=== PATIENT | female | born 1960 | race Caucasian/White ===

== ENCOUNTER 2017-04-20 18:01 | Inpatient (IN) | payer BC, OTHER ==
[~2017-04-20] VITALS: Ht 157.5 cm; Wt 67.1 kg
[~2017-04-20 18:01] MED LIST: AMOX500 PO; CITA20 PO; FURO20 PO; GABA300T24; HYDACE5 PO; HYDACE5325 PO; HYDR-86; HYOS.125 SL; LORA2 PO; NAPR250 PO; NORT25 PO; Nitrostat0.4 MG SL; OMEP20ER PO; OXYACE5T PO; PANT40 PO; PROM25 PO; RANI150 PO; RXHYDACE PO; SIMV80 PO; SUMA25 PO; SYNTHROID0.2 MG PO; TAMS.4ER PO; TRAZ100; TRAZ150T57
[2017-04-20] MEDS ORDERED: PROM25 PO (18:22)
[2017-04-20 19:00] LABS: BASOPHILS ABSOLUTE AUTO 0.06 K/mm3 (0.00-0.23); BASOPHILS PERCENT AUTO 0 % (0-2); EOSINOPHILS ABSOLUTE AUTO 0.14 K/mm3 (0.00-0.68); EOSINOPHILS PERCENT AUTO 1 % (0-6); Hematocrit 40.6 % (33.0-51.0); IMMATURE GRAN ABSOLUTE AUTO 0.06 K/mm3 (0.00-0.10); IMMATURE GRAN PERCENT AUTO 0 % (0-1); LYMPHOCYTES ABSOLUTE AUTO 3.61 K/mm3 (0.84-5.20); LYMPHOCYTES PERCENT AUTO 25 % (21-46); MONOCYTES ABSOLUTE AUTO 0.74 K/mm3 (0.16-1.47); MONOCYTES PERCENT AUTO 5 % (4-13); Mean Corpuscular HGB 31.1 pg (26.0-34.0); Mean Corpuscular HGB Conc 34.5 g/dL (31.5-36.5); Mean Corpuscular Volume 90 fL (80-100); Mean Platelet Volume 9.1 fL (9.1-12.4); NEUTROPHILS ABSOLUTE AUTO 9.84 K/mm3 (1.96-9.15); NEUTROPHILS PERCENT AUTO 68 % (41-73); Platelet Count 354 K/mm3 (150-400); RDW Coefficient Variation 17.9 % (11.7-14.2); RDW Standard Deviation 58.8 fL (35.1-46.3); White Blood Cell Count 14.45 K/mm3 (4.00-11.30)
[2017-04-20 19:18] LABS: Alanine Aminotransfer (ALT/SGP 21 U/L (12-78); Albumin, Blood 3.9 g/dL (3.4-5.0); Albumin/Globulin Ratio 0.9 (0.8-1.8); Alk Phos 87 U/L (50-136); Anion Gap 11 mmol/L (6-16); Aspartate Aminotrans (AST/SGOT 19 U/L (12-37); Bilirubin, Total 0.4 mg/dL (0.1-1.0); Blood Urea Nitrogen 8 mg/dL (8-24); Bun/Creatinine Ratio 12.9 (12.0-20.0); CO2, Blood 21 mmol/L (21-32); Calcium, Blood 8.8 mg/dL (8.5-10.1); Chloride, Blood 105 mmol/L (98-108); Creatinine, Blood 0.62 mg/dL (0.40-1.00); Globulin, Blood 4.3 g/dL (2.2-4.0); Glomerular Filtration Rate >60 (60-); Glucose, Blood 144 mg/dL (70-99); Potassium, Blood 3.7 mmol/L (3.5-5.5); Sodium, Blood 137 mmol/L (136-145); Total Protein, Blood 8.2 g/dL (6.4-8.2)
[2017-04-20] MEDS ORDERED: Zofran Odt4 MG SL (20:29)
[2017-04-20] MEDS ORDERED: Augmentin 875-1 EACH PO (20:29)
[2017-04-20] MEDS ORDERED: Percocet 5-3251 EACH PO (20:29)
[2017-04-21 06:55] LABS: BASOPHILS ABSOLUTE AUTO 0.05 K/mm3 (0.00-0.23); BASOPHILS PERCENT AUTO 0 % (0-2); EOSINOPHILS ABSOLUTE AUTO 0.15 K/mm3 (0.00-0.68); EOSINOPHILS PERCENT AUTO 1 % (0-6); Hematocrit 40.9 % (33.0-51.0); Hemoglobin 13.7 g/dL (11.5-16.0); IMMATURE GRAN ABSOLUTE AUTO 0.03 K/mm3 (0.00-0.10); IMMATURE GRAN PERCENT AUTO 0 % (0-1); LYMPHOCYTES ABSOLUTE AUTO 4.11 K/mm3 (0.84-5.20); LYMPHOCYTES PERCENT AUTO 36 % (21-46); MONOCYTES ABSOLUTE AUTO 0.93 K/mm3 (0.16-1.47); MONOCYTES PERCENT AUTO 8 % (4-13); Mean Corpuscular HGB 31.1 pg (26.0-34.0); Mean Corpuscular HGB Conc 33.5 g/dL (31.5-36.5); Mean Platelet Volume 8.8 fL (9.1-12.4); NEUTROPHILS ABSOLUTE AUTO 6.05 K/mm3 (1.96-9.15); NEUTROPHILS PERCENT AUTO 54 % (41-73); Platelet Count 316 K/mm3 (150-400); RDW Standard Deviation 61.9 fL (35.1-46.3); White Blood Cell Count 11.32 K/mm3 (4.00-11.30)
[2017-04-21 06:56] LABS: Mean Corpuscular Volume 93 fL (80-100)
[2017-04-21] MEDS ORDERED: CIPR500 PO (13:22)
[2017-04-21] MEDS ORDERED: HYDR1TAB94 PO (13:23)
[2017-04-21] MEDS ORDERED: METR500 PO (13:24)
[2017-04-22 05:35] LABS: BASOPHILS ABSOLUTE AUTO 0.05 K/mm3 (0.00-0.23); BASOPHILS PERCENT AUTO 0 % (0-2); EOSINOPHILS ABSOLUTE AUTO 0.16 K/mm3 (0.00-0.68); EOSINOPHILS PERCENT AUTO 1 % (0-6); Hematocrit 38.4 % (33.0-51.0); Hemoglobin 12.5 g/dL (11.5-16.0); IMMATURE GRAN ABSOLUTE AUTO 0.05 K/mm3 (0.00-0.10); IMMATURE GRAN PERCENT AUTO 0 % (0-1); LYMPHOCYTES ABSOLUTE AUTO 3.37 K/mm3 (0.84-5.20); LYMPHOCYTES PERCENT AUTO 25 % (21-46); MONOCYTES ABSOLUTE AUTO 0.95 K/mm3 (0.16-1.47); MONOCYTES PERCENT AUTO 7 % (4-13); Mean Corpuscular HGB 31.2 pg (26.0-34.0); Mean Corpuscular HGB Conc 32.6 g/dL (31.5-36.5); Mean Platelet Volume 9.7 fL (9.1-12.4); NEUTROPHILS ABSOLUTE AUTO 8.77 K/mm3 (1.96-9.15); NEUTROPHILS PERCENT AUTO 66 % (41-73); Platelet Count 322 K/mm3 (150-400); RDW Coefficient Variation 18.5 % (11.7-14.2); RDW Standard Deviation 65.9 fL (35.1-46.3); Red Blood Cell Count 4.01 M/mm3 (3.80-5.20); White Blood Cell Count 13.35 K/mm3 (4.00-11.30)
[2017-04-22 05:42] LABS: Mean Corpuscular Volume 96 fL (80-100)
[2017-04-22 05:58] LABS: Anion Gap 6 mmol/L (6-16); Blood Urea Nitrogen 6 mg/dL (8-24); Bun/Creatinine Ratio 8.8 (12.0-20.0); CO2, Blood 26 mmol/L (21-32); Chloride, Blood 109 mmol/L (98-108); Creatinine, Blood 0.68 mg/dL (0.40-1.00); Glomerular Filtration Rate >60 (60-); Glucose, Blood 101 mg/dL (70-99); Potassium, Blood 3.8 mmol/L (3.5-5.5); Sodium, Blood 141 mmol/L (136-145)
[2017-04-23 04:26] LABS: BASOPHILS ABSOLUTE AUTO 0.05 K/mm3 (0.00-0.23); BASOPHILS PERCENT AUTO 0 % (0-2); EOSINOPHILS ABSOLUTE AUTO 0.22 K/mm3 (0.00-0.68); EOSINOPHILS PERCENT AUTO 2 % (0-6); Hematocrit 38.4 % (33.0-51.0); Hemoglobin 12.6 g/dL (11.5-16.0); IMMATURE GRAN ABSOLUTE AUTO 0.04 K/mm3 (0.00-0.10); IMMATURE GRAN PERCENT AUTO 0 % (0-1); LYMPHOCYTES PERCENT AUTO 33 % (21-46); MONOCYTES ABSOLUTE AUTO 0.99 K/mm3 (0.16-1.47); MONOCYTES PERCENT AUTO 8 % (4-13); Mean Corpuscular HGB 31.2 pg (26.0-34.0); Mean Corpuscular HGB Conc 32.8 g/dL (31.5-36.5); Mean Corpuscular Volume 95 fL (80-100); Mean Platelet Volume 9.4 fL (9.1-12.4); NEUTROPHILS ABSOLUTE AUTO 6.64 K/mm3 (1.96-9.15); NEUTROPHILS PERCENT AUTO 56 % (41-73); Platelet Count 326 K/mm3 (150-400); RDW Coefficient Variation 18.2 % (11.7-14.2); RDW Standard Deviation 63.7 fL (35.1-46.3); Red Blood Cell Count 4.04 M/mm3 (3.80-5.20); White Blood Cell Count 11.84 K/mm3 (4.00-11.30)
[2017-04-24] MEDS ORDERED: ATOR40TA PO (10:14)
[2017-04-24] MEDS ORDERED: METO5A PO (10:19)
== END 2017-04-24 14:07 | disposition home or self-care (01) | DRG 392 ==
LOC: DELPENDDIS → ER 18:01 → MEDS 21:32 → ENPENDDIS 04-21 10:00 → MEDS 04-21 19:22 → ENPENDDIS 04-24 10:21 → MEDS 04-24 14:07
PROVIDERS: Internal Medicine; Physician Assistant
DX: K57.92 Diverticulitis of intestine, part unspecified, without perforation or abscess without bleeding (principal); E03.9 Hypothyroidism, unspecified; E78.5 Hyperlipidemia, unspecified; M79.7 Fibromyalgia; Z79.899 Other long term (current) drug therapy; Z91.14 Patient's other noncompliance with medication regimen
CPT/HCPCS: 36415; 74176; 80048; 80053; 81000; 83605; 83690; 84443; 84484; 85025; 87040; 93005; 93010; 96361; 96365; 96366; 96367; 96368; 96372; 96374; 96375; 96376; 99285; G0378; J0744; J1170; J1650; J2405; J2550

== ENCOUNTER → 2018-07-23 | Outpatient (CLI) | payer BC, OTHER ==
[~2018-07-23] MED LIST changes: +ATOR40TA PO; +Augmentin 875-1 EACH PO; +CIPR500 PO; +HYDR1TAB94 PO; +IBUP800; +METO5A PO; +METR500 PO; +Nortriptyline H50 MG PO; +Percocet 5-3251 EACH PO; +Zofran Odt4 MG SL
== END | disposition home or self-care (01) ==
LOC: LAB 19:02 → LAB SHORT 19:02
DX: E03.9 Hypothyroidism, unspecified (principal)
CPT/HCPCS: 84443

== ENCOUNTER 2018-07-24 12:50 | Emergency (ER) | payer BC, OTHER ==
[~2018-07-24] VITALS: Ht 157.5 cm; Wt 65.8 kg
[~2018-07-24 12:50] MED LIST changes: -IBUP800; -Nortriptyline H50 MG PO
[2018-07-24] MEDS ORDERED: IBUP800 (13:18)
[2018-07-24] MEDS ORDERED: Nortriptyline H50 MG PO (13:18)
[2018-07-24] MEDS ORDERED: HYDR1TAB94 PO (15:01)
== END 2018-07-24 15:06 | disposition home or self-care (01) ==
LOC: ER 12:50
DX: S59.201A Unspecified physeal fracture of lower end of radius, right arm, initial encounter for closed fracture (principal); S90.121A Contusion of right lesser toe(s) without damage to nail, initial encounter; S80.01XA Contusion of right knee, initial encounter; S80.212A Abrasion, left knee, initial encounter; W18.30XA Fall on same level, unspecified, initial encounter
CPT/HCPCS: 25605; 73110; 73590; 73620; 96372-59; 99283-25; J3010

== ENCOUNTER 2018-07-29 11:03 | Day surgery (SDC) | payer BC, OTHER ==
[~2018-07-29] VITALS: Ht 157.5 cm; Wt 68.0 kg
[~2018-07-29 11:03] MED LIST changes: +IBUP800; +Nortriptyline H50 MG PO
--- NOTE | 2018-07-29 11:31 | NUR ---
Ambulatory in Day Surgery History, Chart, Medications and Allergies reviewed before start of procedure.HISTORY OF LEFT UPPER LOBECTOMY-OTHERWISE GOOD AIR EXCHANGE THROUGH OUT LUNG UNNO. SATS>90% ON RA.Patient confirms NPO status and agrees with scheduled surgery. Pre-Op teaching done. Pt verbalizes understanding. Patient States Post-Procedure ride home has been arranged.
--- NOTE | 2018-07-29 12:30 | NUR ---
PT IS DIFFICULT VENIPUNCTURE. SARIKA.CDC ATTEMPT X 2 WITH ULTRASOUND. ORD.BAB X 2 WITH VEIN LIGHT, AND ORD.JXB ATTEMPTED X 2 UTILIZING VEIN LIGHT, AND ORD.KJS ATTEMPTED X [address] MCGUIRE MADE AWARE THAT PT DIFFICULT VENIPUNCTURE AND VERBAL ORDER GIVEN TO PLACE IV TO FOOT A LAST RESORT.
--- NOTE | 2018-07-29 15:51 | NUR ---
INTO STEP VIA GURNEY. PT A&0X3. REPORTS 9/10 RIGHT WRIST PAIN. CAPILLARY REFILL>3 SEC,LOOSENED ARON WRAP AND GOOD CAPILLARY REFILL/RESTORED. STAND BY ASSIST TO BRP-TOLERATED WELL. RIGHT UPPER EXTREMITY ELEVATED ON PILLOW AND ICE PLACED. PT GIVEN MOHSEN MIST AND SODA CRACKERS-MED WITH NORCO 5/325 MG 2 PO FOR PAIN-SEE EMAR.
--- NOTE | 2018-07-29 16:39 | NUR ---
Patient up to Ambulate independently. Gait steady. Dressing to procedure site clean, dry, intact with no visible drainage, swelling, erythema or bruising noted.PAIN LEVEL NOW 5/10. Discharge instructions reviewed with patient. Patient verbalizes understanding. Copy given to patient to take home. Discharged via wheelchair to private car for ride home.
== END 2018-07-29 16:50 | disposition home or self-care (01) ==
LOC: ORSCMMR 11:03
PROVIDERS: Orthopaedic Surgery
PROC: 0PSH04Z Reposition Right Radius with Internal Fixation Device, Open Approach (ICD-10-PCS; principal; 2018-07-29 13:00)
DX: S52.571A Other intraarticular fracture of lower end of right radius, initial encounter for closed fracture (principal); E03.9 Hypothyroidism, unspecified; J45.909 Unspecified asthma, uncomplicated; Z79.899 Other long term (current) drug therapy
CPT/HCPCS: A9270-GY; C1713; J0690; J1100; J2250; J2405; J2704; J3010; J7120

== ENCOUNTER → 2019-07-28 | Outpatient (CLI) | payer OTHER | END | disposition home or self-care (01) | LOC: LAB SHORT 18:23 → LAB 18:23 | DX: Z11.59 Encounter for screening for other viral diseases (principal); E03.9 Hypothyroidism, unspecified | CPT/HCPCS: 84443; 86803 ==